=== PATIENT | female | born 1995 | race Caucasian/White ===

== ENCOUNTER 2016-10-23 10:59 | Emergency (ER) | payer BC ==
[2016-10-23] MEDS ORDERED: Ketorolac INJ* 30 MG/ML 1 ML VIAL IV ONE (13:02)
[2016-10-23 13:10] LABS: Urine Bilirubin Negative (Negative); Urine Glucose Negative (Negative); Urine Nitrite Negative (Negative)
[2016-10-23] MEDS: NS 0.9% 1000 ML* 2,000 ML IV ONE (13:11)
[2016-10-23 13:23] LABS: Hematocrit 38 % (35-47); Hemoglobin 12.7 g/dl (12.0-16.0); Mean Corpuscular HGB Conc 34 g/dl (31-36); Mean Corpuscular Hemoglobin 29 pg (27-31); Mean Corpuscular Volume 86 fL (80-97); Mean Platelet Volume 8 um3 (7.4-10.4); Red Blood Count 4.39 10^6/ul (4.0-5.4); Red Cell Distribution Width 13 % (10.5-15); White Blood Count 6.7 10^3/ul (3.5-10.8)
[2016-10-23 13:38] LABS: ALT 9 U/L (7-52); AST 16 U/L (13-39); Albumin 3.9 g/dL (3.2-5.2); Alkaline Phosphatase 54 U/L (34-104); Anion Gap 8 mmol/L (2-11); BUN/Creatinine Ratio 12.3 (8-20); Blood Urea Nitrogen 9 mg/dL (6-24); C Reactive Protein 142.36 mg/L (< 5.00); CO2 Carbon Dioxide 26 mmol/L (22-32); Calcium 9.4 mg/dL (8.6-10.3); Chloride 103 mmol/L (101-111); EGFR African American 128.2 (>60); EGFR Non-African American 99.7 (>60); Globulin 3.1 g/dL (2-4); Glucose 91 mg/dL (70-100); Lipase 16 U/L (11.0-82.0); Potassium 4.1 mmol/L (3.5-5.0); Sodium 137 mmol/L (133-145)
[2016-10-23 13:51] LABS: Mono Internal Control QC Line Present
--- NOTE | 2016-10-23 14:13 | ED ---
Riky Piedra Janilya, scribed for Pancho Wilkes MD on 10/23/16 at 1305 . Complex/Multi-Sys Presentation - HPI Summary HPI Summary: A 20 y/o female came in to [facility] presenting w/ a sudden onset of constant fatigue and weakness starting Monday, October 19, 2016. Pt states that she had a cold the week before with Sx like cough, sore throat, runny nose, however , it was "all cleared up by Monday and Monday". On Monday, she states that she suddenly woke up with a LEWIS, fatigue, weakness, overall body aches. She took Tylenol with no relief. She was seen at Urgent Care on Monday and was tested for influenza and mono; both tests were negative. She was given iburpofen which alleviated her LEWIS to severity 2/10 that was before constant severity rated 8/10 since Monday. LEWIS described as tension LEWIS from tightness. However, her fatigue and her body ahces did not change and she states "it didn't feel right" . Yesterday morning, she felt slightly better so she went out to the park, however, within an hour, she felt exhausted and wiped out. So she came home and slept from 3 PM until 7 PM. She went out for a bit to walk her dog after her nap then went back to sleep and slept until this morning. She's been having chills, but she is unsure about fever. In addition, she reports back and neck pain, but she is unsure if it's related to her CC or whether it's from sleeping for long hours. It is stiff to bend her head in all directions. Pt denies CP, SOB, nausea, dysuria, rashes. Pt did have diarrhea on Mon, but not for the rest of the week. She's been taking Aleve every 12 hours. LNMP 2 weeks ago. - History Of Current Complaint Chief Complaint: EDGeneral Time Seen by Provider: 10/23/16 12:36 Hx Obtained From: Patient Onset/Duration: Sudden Onset, Lasting Days, Still Present Timing: Constant Severity Currently: Moderate Severity Initially: Moderate Character: Typical Headache Associated Signs And Symptoms: Positive: Weakness, Headache, Abdominal Pain, Back Pain. Negative: SOB, Cough, Nausea, Vomiting - Allergies/Home Medications Allergies/Adverse Reactions: Allergies Allergy/AdvReac Type Severity Reaction Status Date / Time No Known Allergies Allergy Verified 10/23/16 13:19 PMH/Surg Hx/FS Hx/Imm Hx Previously Healthy: Yes Sensory History: Denies: Hx Eye Prosthesis Infectious Disease History: No Infectious Disease History: Denies: Traveled Outside the [place] in Last 30 Days - Family History Known Family History: Positive: Hypertension - mother, Other - cancer - Social History Occupation: Student - student advisor Alcohol Use: None Substance Use Type: Reports: None Smoking Status (MU): Unknown if Ever Smoked Review of Systems Positive: Chills, Fatigue. Negative: Fever - pt is unsure Negative: Chest Pain Negative: Shortness Of Breath Positive: Diarrhea - only on Mon. Negative: Nausea Negative: dysuria Positive: Arthralgia - back and neck pain, Myalgia - back and neck pain, Other - overall body aches Negative: Rash Positive: Headache, Weakness All Other Systems Reviewed And Are Negative: Yes Physical Exam Triage Information Reviewed: Yes Vital Signs On Initial Exam: Initial Vitals Temp Pulse Resp BP Pulse Ox 99.5 F 101 16 117/81 100 10/23/16 11:07 10/23/16 11:07 10/23/16 11:07 10/23/16 11:07 10/23/16 11:07 Vital Signs Reviewed: Yes Appearance: Positive: No Pain Distress, Ill-Appearing - mildly Skin: Positive: Warm, Skin Color Reflects Adequate Perfusion, Dry Head/Face: Positive: Normal Head/Face Inspection Eyes: Positive: EOMI, KAYDEN ENT: Positive: Normal ENT inspection Neck: Positive: Supple, Nontender, Other: - With full ROM Respiratory/Lung Sounds: Positive: Clear to Auscultation, Breath Sounds Present Cardiovascular: Positive: RRR Abdomen Description: Positive: Nontender, Soft Bowel Sounds: Positive: Present Musculoskeletal: Positive: Normal, Strength/ROM Intact Neurological: Positive: Normal, Sensory/Motor Intact, Alert, Oriented to Person Place, Time Psychiatric: Positive: Affect/Mood Appropriate - Frankie Coma Scale Coma Scale Total: 15 Diagnostics - Vital Signs Vital Signs Temp Pulse Resp BP Pulse Ox 10/23/16 11:30 95 132/79 97 10/23/16 11:22 99 99 10/23/16 11:21 131/94 10/23/16 11:07 99.5 F 101 16 117/81 100 - Laboratory Lab Results: Lab Results 10/23/16 10/23/16 10/23/16 Range/Units 11:08 13:15 13:15 WBC 6.7 (3.5-10.8) 10^3/ul RBC 4.39 (4.0-5.4) 10^6/ul Hgb 12.7 (12.0-16.0) g/dl Hct 38 (35-47) % MCV 86 (80-97) fL MCH 29 (27-31) pg MCHC 34 (31-36) g/dl RDW 13 (10.5-15) % Plt Count 212 (150-450) 10^3/ul MPV 8 (7.4-10.4) um3 Neut % (Auto) 81.7 (38-83) % Lymph % (Auto) 7.8 L (25-47) % [place] % (Auto) 8.7 (1-9) % Eos % (Auto) 0.2 (0-6) % Baso % (Auto) 1.6 (0-2) % Absolute Neuts (auto) 5.5 (1.5-7.7) 10^3/ul Absolute Lymphs (auto) 0.5 L (1.0-4.8) 10^3/ul Absolute Monos (auto) 0.6 (0-0.8) 10^3/ul Absolute Eos (auto) 0 (0-0.6) 10^3/ul Absolute Basos (auto) 0.1 (0-0.2) 10^3/ul Absolute Nucleated RBC 0 10^3/ul Nucleated RBC % 0 Sodium 137 (133-145) mmol/L Potassium 4.1 (3.5-5.0) mmol/L Chloride 103 (101-111) mmol/L Carbon Dioxide 26 (22-32) mmol/L Anion Gap 8 (2-11) mmol/L BUN 9 (6-24) mg/dL Creatinine 0.73 (0.51-0.95) mg/dL Est GFR ( Amer) 128.2 (>60) Est GFR (Non-Af Amer) 99.7 (>60) BUN/Creatinine Ratio 12.3 (8-20) Glucose 91 (70-100) mg/dL Lactic Acid (0.5-2.0) mmol/L Calcium 9.4 (8.6-10.3) mg/dL Total Bilirubin 0.60 (0.2-1.0) mg/dL AST 16 (13-39) U/L ALT 9 (7-52) U/L Alkaline Phosphatase 54 (34-104) U/L C-Reactive Protein 142.36 H (< 5.00) mg/L Total Protein 7.0 (6.4-8.9) g/dL Albumin 3.9 (3.2-5.2) g/dL Globulin 3.1 (2-4) g/dL Albumin/Globulin Ratio 1.3 (1-3) Lipase 16 (11.0-82.0) U/L TSH Pending Beta HCG, Quant < 0.60 mIU/mL Urine Color Straw Urine Appearance Clear Urine pH 6.0 (5-9) Ur Specific [place] 1.003 L (1.010-1.030) Urine Protein Negative (Negative) Urine Ketones Negative (Negative) Urine Blood Negative (Negative) Urine Nitrate Negative (Negative) Urine Bilirubin Negative (Negative) Urine Urobilinogen Negative (Negative) Ur Leukocyte Esterase Negative (Negative) Urine Glucose Negative (Negative) Monoscreen Negative (Negative) Influenza A (Rapid) (Negative) Influenza B (Rapid) (Negative) 10/23/16 10/23/16 Range/Units 13:15 13:22 WBC (3.5-10.8) 10^3/ul RBC (4.0-5.4) 10^6/ul Hgb (12.0-16.0) g/dl Hct (35-47) % MCV (80-97) fL MCH (27-31) pg MCHC (31-36) g/dl RDW (10.5-15) % Plt Count (150-450) 10^3/ul MPV (7.4-10.4) um3 Neut % (Auto) (38-83) % Lymph % (Auto) (25-47) % [place] % (Auto) (1-9) % Eos % (Auto) (0-6) % Baso % (Auto) (0-2) % Absolute Neuts (auto) (1.5-7.7) 10^3/ul Absolute Lymphs (auto) (1.0-4.8) 10^3/ul Absolute Monos (auto) (0-0.8) 10^3/ul Absolute Eos (auto) (0-0.6) 10^3/ul Absolute Basos (auto) (0-0.2) 10^3/ul Absolute Nucleated RBC 10^3/ul Nucleated RBC % Sodium (133-145) mmol/L Potassium (3.5-5.0) mmol/L Chloride (101-111) mmol/L Carbon Dioxide (22-32) mmol/L Anion Gap (2-11) mmol/L BUN (6-24) mg/dL Creatinine (0.51-0.95) mg/dL Est GFR ( Amer) (>60) Est GFR (Non-Af Amer) (>60) BUN/Creatinine Ratio (8-20) Glucose (70-100) mg/dL Lactic Acid 0.6 (0.5-2.0) mmol/L Calcium (8.6-10.3) mg/dL Total Bilirubin (0.2-1.0) mg/dL AST (13-39) U/L ALT (7-52) U/L Alkaline Phosphatase (34-104) U/L C-Reactive Protein (< 5.00) mg/L Total Protein (6.4-8.9) g/dL Albumin (3.2-5.2) g/dL Globulin (2-4) g/dL Albumin/Globulin Ratio (1-3) Lipase (11.0-82.0) U/L TSH Beta HCG, Quant mIU/mL Urine Color Urine Appearance Urine pH (5-9) Ur Specific [place] (1.010-1.030) Urine Protein (Negative) Urine Ketones (Negative) Urine Blood (Negative) Urine Nitrate (Negative) Urine Bilirubin (Negative) Urine Urobilinogen (Negative) Ur Leukocyte Esterase (Negative) Urine Glucose (Negative) Monoscreen (Negative) Influenza A (Rapid) Negative (Negative) Influenza B (Rapid) Negative (Negative) Result Diagrams: 10/23/16 13:15 10/23/16 13:15 Lab Statement: Any lab studies that have been ordered have been reviewed, and results considered in the medical decision making process. Complex Multi-Symp Course/Dx Assessment/Plan: WELL IN ED. LEWIS 10/14 AND HAS IMPROVED SINCE ONSET. NO FEVER. GENERALIZED MYALGIAS AND NECK FROM. WBC WNL. DISCUSSED RESULTS WITH PATIENT/ SISTER. TSH AND LYME SCREEN PENDING AT SHIFT CHANGE. F/U WITH [facility]; RETURN TO ED IF WORSE. DISCHARGE HOME STABLE. - Diagnoses Provider Diagnoses: Fatigue, Headache, Myalgia Discharge - Discharge Plan Condition: Stable Disposition: HOME Patient Education Materials: Fatigue (ED), General Headache (ED) [facility]Primary [facility] Provider] - Additional Instructions: FOLLOW UP WITH [facility]. RETURN TO THE EMERGENCY DEPARTMENT FOR ANY WORSENING OF YOUR CONDITION; PERSISTENT OR WORSENING HEADACHE, FEVERS, YOU FEEL ILL OR QUESTIONS OR CONCERNS. The documentation as recorded by the Riky arevalo Janilya accurately reflects the service I personally performed and the decisions made by me, Pancho Wilkes MD.
[2016-10-23 14:15] VITALS: BP 132/83
== END 2016-10-23 14:31 | disposition home or self-care (01) ==
LOC: ED 10:59
DX: R10.9 Unspecified abdominal pain (principal); M54.9 Dorsalgia, unspecified; R53.83 Other fatigue; R53.1 Weakness; R51 Headache
CPT/HCPCS: 36415; 80053; 81003; 83605; 83690; 84443; 84702; 85025; 86140; 86308; 86618; 87502; 96361; 96374; 99282; J1885